=== PATIENT | male | born 1970 | race Caucasian/White ===

== ENCOUNTER 2020-02-05 08:34 | Emergency (ER) | payer BC, OTHER, SELFPAY ==
--- NOTE | 2020-02-05 08:41 | ED.SKABFB ---
HPI - Skin/Abscess/Foreign Bdy General Chief complaint: Skin/Abscess/Foreign Body Stated complaint: Poison marla or [place] Time Seen by Provider: 02/05/20 08:41 Source: patient and RN notes reviewed History of Present Illness HPI narrative: Patient is a 49-year-old male who presents the urgent care with complaints of itchy red rash from head to toe. Patient states he woke up with the areas on Tuesday and obtain some triamcinolone cream from a friend and was using it to the groin area. Patient states that that is the only area that has since then cleared up. Patient denies any other use of [id number] medication. No other acute complaints. No acute distress noted. Patient aware of the plan of care. Some parts of this dictation were generated by voice recognition software and may contain typographical and/or grammatical inaccuracies. Related Data Allergies Allergy/AdvReac Type Severity Reaction Status Date / Time amoxicillin AdvReac Mild VOMITING Verified 02/05/20 09:06 Penicillins AdvReac Mild NAUSEA Verified 02/05/20 09:06 Review of Systems Review of Systems: Narrative: CONSTITUTIONAL: Denies fever, chills, or sweats. EYES: Denies visual changes, redness, or discharge. ENT: Denies rhinorrhea, congestion, sore throat, or otalgia. CARDIOVASCULAR: Denies chest pain, palpitations, or edema. RESPIRATORY: Denies cough or dyspnea. GASTROINTESTINAL: Denies abdominal pain, nausea, vomiting, or diarrhea. GENITOURINARY: Denies dysuria or hematuria. SKIN: Reports of itchy red rash from head to toe MUSCULOSKELETAL: Denies back pain, joint pain, or myalgia. NEUROLOGIC: Denies headache, numbness, or weakness. All other systems reviewed are negative, except as documented in HPI. PMFSH Comments At the time of my signature, I reviewed and agree with the nursing past medical, surgical, social, and family history. There is no relevant family history pertinent to the patient complaint. Exam Narrative: Exam Narrative: GENERAL: This is a well-nourished, well-developed patient, in no apparent distress. HEAD: normocephalic, atraumatic. EYES: PERRL. Sclera clear/white. Vision is grossly intact. EARS: External ears normal NOSE: External nose normal with no obvious nasal discharge, nares without redness, no rhinorrhea. THROAT: Mucous membranes moist NECK: Neck supple SKIN: Erythemic Dena dermatitis noted to the lower right back, left lower arm, left arm, bilateral ankles NEURO: awake, alert, and oriented to person, place and time. There were no obvious focal neurologic abnormalities. EXTREMITIES: No clubbing, cyanosis, or edema. Course Vital Signs Vital signs: Vital Signs Temperature 98.2 F 02/05/20 08:46 Pulse Rate 88 02/05/20 08:46 Respiratory Rate 14 02/05/20 08:46 Blood Pressure 170/108 H 02/05/20 08:46 Pulse Oximetry 98 02/05/20 08:46 Temperature 98.2 F 02/05/20 08:46 Pulse Rate 88 02/05/20 08:46 Respiratory Rate 14 02/05/20 08:46 Blood Pressure 170/108 H 02/05/20 08:46 Pulse Oximetry 98 02/05/20 08:46 Reviewed-patient is informed that they may have pre-hypertension or hypertension based on a blood pressure reading in the department. I recommend the patient call the primary care provider listed on their discharge instructions or a physician of their choice this week to arrange follow-up for further evaluation of possible pre-hypertension or hypertension. MDM - Skin/Abscess/Foreign Bdy MDM Narrative Medical decision making narrative: Advised the patient to start the steroid regimen tomorrow considering he had large dose in the facility. Advised the patient to use prescription cream to the affected areas, avoiding the groin, around the eyes, and underarms. Use TecNu scrub [id number] daily. Use Benadryl or an allergy medication daily as needed for itching. Follow-up with your PCP within 2 to 5 days if her worsening symptoms or failure to improve. Differential Diagnosis Differential diagnosis: Likely absces
[2020-02-05 08:46] VITALS: BP 170/108; PULSE 88; RESP 14; TEMP 36.8; O2SAT 98
[2020-02-05] MEDS: predniSONE 20 MG TABLET 60 MG PO (09:13)
== END 2020-02-05 09:35 | disposition home or self-care (01) ==
PROVIDERS: Emergency Provider Nurse Practitioner Family
DX: L23.7 Allergic contact dermatitis due to plants, except food (principal)
CPT/HCPCS: 99213; G0463; J7512